=== PATIENT | female | born 1985 ===

== ENCOUNTER 2018-11-09 21:30 | Outpatient (CLI) | payer OTHER ==
[2018-11-09] MEDS ORDERED: LACTATED RINGERS 500 ML IV ONE (21:37)
[2018-11-09 21:52] VITALS: BP 123/76
[2018-11-09 22:40] LABS: Bilirubin,Urine NEG (Negative); Blood,Urine NEG (Negative); Color,Urine Straw (Yellow); Mucus,Urine FEW /HPF; Protein,Urine <15 mg/dL mg/dL (Negative); Urobilinogen,Urine < 2.0 mg/dL (<2.0)
== END 2018-11-09 23:00 | disposition home or self-care (01) ==
LOC: TRG 21:30
PROVIDERS: ATTEND Obstetrics & Gynecology
DX: O42.913 Preterm premature rupture of membranes, unspecified as to length of time between rupture and onset of labor, third trimester (principal); O46.93 Antepartum hemorrhage, unspecified, third trimester; O26.893 Other specified pregnancy related conditions, third trimester; M54.9 Dorsalgia, unspecified; Z3A.36 36 weeks gestation of pregnancy
CPT/HCPCS: 59025; 81001

== ENCOUNTER 2018-11-22 20:17 | Inpatient (IN) | payer OTHER ==
[2018-11-22] MEDS ORDERED: ZOFRAN IV PRN (22:36)
[2018-11-22] MEDS ORDERED: SUBLIMAZE IV PRN (22:36)
[2018-11-22] MEDS ORDERED: XYLOCAINE 2% INFILTRATI ONE ×2 (22:36→22:57)
[2018-11-22] MEDS ORDERED: STADOL IV PRN (22:36)
[2018-11-22] MEDS ORDERED: BRETHINE SUB-Q PRN (22:36)
[2018-11-22] MEDS ORDERED: CERVIDIL VG ONE (22:36)
[2018-11-22] MEDS ORDERED: MINERAL OIL PO PRN (22:36)
[2018-11-22] MEDS ORDERED: BRETHINE IVP PRN (22:57)
[2018-11-22] MEDS ORDERED: PITOCin/NS 20 UNIT/1000ML DRIP 20 UNITS/1,000 ML BAG IV SCH (23:00)
[2018-11-22] MEDS ORDERED: LACTATED RINGERS 1,000 ML IV SCH (23:00)
--- NOTE | 2018-11-22 23:15 | History and Physical Report ---
History of Present Illness Date of examination: 11/22/18 Date of admission: 11/22/18 20:17 Chief complaint: IOL secondary to Pre-Eclampsia History of present illness: 33 yo, at 38.3 wks gestation. She initiated care with [facility] at 10.5 weeks. She presents today for an IOL secondary to Pre- eclampsia. She reports positive FM. Denies VB or LOF. She reports some H/As and visual changes. Labs: O+, antibody negative; PAP normal; VDRL negative; Rubella immune; HBsAg negative; HIV negative; Gc/Chlamydia negative; early 1 hr gtt- 107; 28 wk 1 hr gtt- 116; GBS negative. Past History Past Medical History: no pertinent history Past Surgical History: no surgical history Family/Genetic History: diabetes, hypertension Social history: , lives with family, full code. denies: smoking, alcohol abuse, prescription drug abuse, IV drug use - Obstetrical History Expected Date of Delivery: 12/03/18 Actual Gestation: 38 Week(s) 3 Day(s) : 5 Para: 4 Hx # Term Pregnancies: 4 Number of Pregnancies: 0 Spontaneous Abortions: 0 Induced : 0 Number of Living Children: 4 #1 Gender: Female year: 2,002 Birthweight: 2.722 kg Method of Delivery: Vaginal Complications: none #2 Gender: Male year: 2,[birth year] Birthweight: 3.629 kg Method of Delivery: Vaginal Complications: none #3 Gender: Male year: 2,013 Birthweight: 3.629 kg Method of Delivery: Vaginal Complications: none #4 Infant Gender: Male year: 2,016 Birthweight: 3.629 kg Method of Delivery: Vaginal Complications: none Medications and Allergies Allergies Allergy/AdvReac Type Severity Reaction Status Date / Time No Known Allergies Allergy Verified 11/09/18 21:37 Active Meds: Active Medications Butorphanol Tartrate (Stadol) 2 mg IV Q2H PRN PRN Reason: Pain , Severe (7-10) Ephedrine Sulfate (Ephedrine Sulfate) 10 mg IV Q2M PRN PRN Reason: Hypotension Fentanyl (Sublimaze) 100 mcg IV Q2H PRN PRN Reason: Labor Pain Oxytocin/Sodium Chloride (Pitocin/Ns 20 Unit/1000ml Drip) 20 units in 1,000 mls @ 125 mls/hr IV DIRECT RUBI Lactated Ringer's (Lactated Ringers) 1,000 mls @ 125 mls/hr IV DIRECT RUBI Oxytocin/Sodium Chloride (Pitocin/Ns 30 Unit/500ml) 30 units in 500 mls @ 1 mls/hr IV TITR RUBI; Protocol Lidocaine (Xylocaine 2%) 20 ml INFILTRATI ONCE ONE Stop: 11/22/18 22:58 Mineral Oil (Mineral Oil) 30 ml PO QHS PRN PRN Reason: Constipation Ondansetron HCl (Zofran) 4 mg IV Q8H PRN PRN Reason: Nausea And Vomiting Terbutaline Sulfate (Brethine) 0.25 mg SUB-Q ONCE PRN PRN Reason: Hyperstimulation/Hypertonicity Terbutaline Sulfate (Brethine) 0.25 mg IVP ONCE PRN PRN Reason: Hyperstimulation/Hypertonicity - Vital Signs Vital signs: Vital Signs Pulse BP 66 138/84 11/22/18 20:46 11/22/18 20:46 Temp Pulse Resp BP Pulse Ox 72 147/92 11/22/18 22:47 11/22/18 22:47 Results All other labs normal.
--- NOTE | 2018-11-22 23:36 | History and Physical Report ---
History of Present Illness Date of admission: 11/22/18 20:17 Chief complaint: IOL secondary to Pre-Eclampsia History of present illness: 33 yo, at 38.3 wks gestation. She initiated care with [facility] at 10.5 weeks. She presents today for an IOL secondary to Pre-ecla mpsia. She reports positive FM. Denies VB or LOF. She reports some H/As and visual changes. Labs: O+, antibody negative; PAP normal; VDRL negative; Rubella immune; HBsAg negative; HIV negative; Gc/Chlamydia negative; early 1 hr gtt- 107; 28 wk 1 hr gtt- 116; GBS negative. Past History Past Medical History: no pertinent history Past Surgical History: no surgical history Family/Genetic History: diabetes, hypertension - Obstetrical History : 5 #1 Gender: Female year: 2,[birth year] Birthweight: 2.722 kg Method of Delivery: Vaginal Complications: none #2 Infant Gender: Male year: 2,005 Birthweight: 3.629 kg Method of Delivery: Vaginal Complications: none #3 Gender: Male year: 2,013 Birthweight: 3.629 kg Method of Delivery: Vaginal Complications: none #4 Gender: Male year: 2,016 Birthweight: 3.629 kg Method of Delivery: Vaginal Complications: none Medications and Allergies Allergies Allergy/AdvReac Type Severity Reaction Status Date / Time No Known Allergies Allergy Verified 11/09/18 21:37 Active Meds: Active Medications Butorphanol Tartrate (Stadol) 2 mg IV Q2H PRN PRN Reason: Pain , Severe (7-10) Ephedrine Sulfate (Ephedrine Sulfate) 10 mg IV Q2M PRN PRN Reason: Hypotension Fentanyl (Sublimaze) 100 mcg IV Q2H PRN PRN Reason: Labor Pain Oxytocin/Sodium Chloride (Pitocin/Ns 20 Unit/1000ml Drip) 20 units in 1,000 mls @ 125 mls/hr IV DIRECT RUBI Lactated Ringer's (Lactated Ringers) 1,000 mls @ 125 mls/hr IV DIRECT RUBI Oxytocin/Sodium Chloride (Pitocin/Ns 30 Unit/500ml) 30 units in 500 mls @ 1 mls/hr IV TITR RUBI; Protocol Mineral Oil (Mineral Oil) 30 ml PO QHS PRN PRN Reason: Constipation Ondansetron HCl (Zofran) 4 mg IV Q8H PRN PRN Reason: Nausea And Vomiting Terbutaline Sulfate (Brethine) 0.25 mg SUB-Q ONCE PRN PRN Reason: Hyperstimulation/Hypertonicity Terbutaline Sulfate (Brethine) 0.25 mg IVP ONCE PRN PRN Reason: Hyperstimulation/Hypertonicity Review of Systems All systems: negative - Vital Signs Vital signs: Vital Signs Pulse BP 66 138/84 11/22/18 20:46 11/22/18 20:46 Temp Pulse Resp BP Pulse Ox 72 132/87 11/22/18 23:17 11/22/18 23:17 - Physical Exam Breasts: Positive: deferred Cardiovascular: Regular rate Lungs: Positive: Normal air movement Abdomen: Positive: other (gravid) Genitourinary (Female): Positive: normal external genitalia Vagina: Positive: normal moisture Uterus: Positive: other (S=D) Extremities: Positive: normal Deep Tendon Reflex Grade: Normal +2 - Obstetrical FHR: category 1 Uterine Contraction Monitor Mode: External Cervical Dilatation: 3 Cervical Effacement Percentage: 65 station: -2 Uterine Contraction Pattern: Absent Uterine Tone Measurement Phase: Resting Results All other labs normal. Assessment and Plan - Patient Problems (1) 38 weeks gestation of Current Visit: Yes Status: Acute (2) Encounter for induction of labor Current Visit: Yes Status: Acute Plan to address problem: Admit to L & D Low dose Pitocin overnight as tolerated Pain medications as desired Anticipate (3) Pre-eclampsia affecting , antepartum Current Visit: Yes Status: Acute Plan to address problem: B/P checks q h Notify provider for B/Ps > 160/110
[2018-11-22] MEDS: PITOCin/NS 30 UNIT/500ML 30 UNITS/500 ML BAG IV SCH (23:56)
[2018-11-23 00:49] LABS: Hematocrit 37.6 % (30.3-42.9); Hemoglobin 13.3 gm/dl (10.1-14.3)
[2018-11-23 01:14] LABS: Hematocrit 37.6 % (30.3-42.9); Mean Corpuscular HGB Conc 35 % (30-34); Mean Corpuscular Volume 101 fl (79-97); Red Cell Distribution Width 13.3 % (13.2-15.2)
[2018-11-23 01:28] LABS: Alanine Aminotransferase 11 units/L (7-56)
[2018-11-23 04:00] LABS: Uric Acid 6.4 mg/dL (3.5-7.6)
[2018-11-23 04:44] LABS: Platelet Count 153 K/mm3 (140-440)
--- NOTE | 2018-11-23 10:12 | Progress Note ---
Assessment and Plan A: IUP @ 38 Weeks and Days Preeclampsia Category I Tracing GBS Negative P: Continue Pitocin Induction AROM Prepare for Epidural Anesthesia Subjective - Subjective Date of service: 11/23/18 Patient reports: movement normal, contractions, other (Denies HAs, visual changes, N&V) Objective - Vital Signs Vital Signs: Vital Signs - 12hr 11/22/18 11/22/18 11/22/18 22:17 22:47 23:17 Pulse Rate 68 72 72 Blood Pressure 140/83 147/92 132/87 11/22/18 11/23/18 11/23/18 23:47 00:16 00:45 Pulse Rate 90 71 77 Blood Pressure 146/88 136/87 138/84 11/23/18 11/23/18 11/23/18 00:48 01:16 01:48 Pulse Rate 82 73 68 Blood Pressure 136/79 131/78 129/83 11/23/18 11/23/18 11/23/18 02:17 02:46 03:18 Pulse Rate 68 65 64 Blood Pressure 142/94 137/77 139/76 11/23/18 11/23/18 11/23/18 03:46 04:18 04:48 Pulse Rate 96 H 74 67 Blood Pressure 133/87 135/83 137/85 11/23/18 05:16 Pulse Rate 63 Blood Pressure 141/78 - Exam Breasts: normal Cardiovascular: Regular rate Lungs: Clear to auscultation, Normal air movement Abdomen: Present: normal appearance, soft Uterus: Present: normal, firm, fundal height above umbilicus FHR: category 1 Uterine Contraction Monitor Mode: External Cervical Dilatation: 4 (Small amount of clear fluid upon AROM at 1005) Cervical Effacement Percentage: 60 station: -2 Uterine Contraction Pattern: Irregular Uterine Tone Measurement Phase: Resting Uterine Contraction Intensity: Mild Extremities: normal - Labs Labs: Abnormal Labs 11/22/18 11/22/18 23:36 23:36 MCV 101 H MCH 35 H MCHC 35 H Creatinine 0.6 L Lactate Dehydrogenase 236 H Laboratory Results - last 24 hr 11/22/18 11/22/18 11/22/18 23:36 23:36 23:36 WBC 10.0 RBC 3.70 Hgb 13.0 Hct 37.6 MCV 101 H MCH 35 H MCHC 35 H RDW 13.3 Plt Count 153 Creatinine 0.6 L Estimated GFR > 60 Uric Acid 6.4 AST 20 ALT 11 Lactate Dehydrogenase 236 H Blood Type Antibody Screen 11/22/18 11/23/18 23:45 00:05 WBC RBC Hgb 13.3 Hct 37.6 MCV MCH MCHC RDW Plt Count Creatinine Estimated GFR Uric Acid AST ALT Lactate Dehydrogenase Blood Type O POSITIVE Antibody Screen Negative
[2018-11-23 10:33] LABS: Bilirubin,Urine NEG (Negative); Blood,Urine NEG (Negative); Color,Urine Yellow (Yellow); Mucus,Urine FEW /HPF; Protein,Urine <15 mg/dL mg/dL (Negative); Urobilinogen,Urine < 2.0 mg/dL (<2.0); WBC,Urine < 1.0 /HPF (0.0-6.0)
[2018-11-23] MEDS: PITOCin/NS 30 UNIT/500ML 30 UNITS/500 ML BAG IV SCH (11:19)
[2018-11-23] MEDS ORDERED: XYLOCAINE 2% INFILTRATI ONE (12:28)
[2018-11-23] MEDS ORDERED: BENADRYL PO PRN (12:48)
[2018-11-23] MEDS ORDERED: TUCKS PAD TP PRN (12:48)
[2018-11-23] MEDS ORDERED: SODIUM CHLORIDE FLUSH SYRINGE 10 ML IV NR (13:00)
--- NOTE | 2018-11-23 13:01 | Procedure Note ---
OB Delivery Note - Delivery Date of Delivery: 11/23/18 (1222) Surgeon: MICHELLE DUMONT Estimated blood loss: other (250) - Vaginal Delivery presentation: vertex Delivery position: OA Intrapartum events: none Delivery induction: oxytocin Delivery augmentation: rupture of membranes, pitocin Delivery monitor: external FHT, external uterine Route of delivery: Delivery placenta: spontaneous Delivery cord: 3 umbilical vessels Episiotomy: none Delivery laceration: 1st degree Delivery repair: vicryl Anesthesia: local Delivery comments: of a live 8'12 female over a 1st degree perineal laceration under IV pain control with Apgars of 8 and 9 at 1222 on 11/23/2018. Infant directly to maternal abd/chest, skin to skin contact. Spontaneous delivery of placenta complete and intact with Rosa side presenting at 1227. Fundus is firm and midline located 4 below the U. Lochia is scant. Perineal laceration repaired with 2-[address]-1 under local 2% Lidocaine. Delayed cord clamping and cutting; cord cut by the Father of the Baby. Cord blood collected. Placenta discarded. - A at 1 minute: 8 at 5 minutes: 9 Infant Gender: Female (8'12)
[2018-11-23] MEDS: IBUPROFEN PO SCH ×2 (15:30→19:23)
[2018-11-23] MEDS: NORCO 5/325 PO PRN ×2 (16:06→22:23)
[2018-11-24 01:38] LABS: Hematocrit 31.9 % (30.3-42.9); Hemoglobin 11.1 gm/dl (10.1-14.3)
[2018-11-24] MEDS: NORCO 5/325 PO PRN (05:27)
[2018-11-24] MEDS: IBUPROFEN PO SCH ×2 (05:28→11:13)
[2018-11-24] MEDS ORDERED: BOOSTRIX IM ONE (06:00)
[2018-11-24] MEDS ORDERED: PRENATAL VITAMIN PO SCH (10:00)
--- NOTE | 2018-11-24 12:33 | Progress Note ---
Assessment and Plan A: PPD#1 s/p Preeclampsia (VSS stable) stable P: Routine PP care Discharge home today Subjective - Subjective Date of service: 11/24/18 Principal diagnosis: PPD#1 s/p Patient reports: appetite normal, voiding normally, pain well controlled, flatus, ambulating normally, no bowel movement : doing well, nursing well Objective - Vital Signs Latest vital signs: Vital Signs Temp Pulse Resp BP BP Pulse Ox 11/24/18 07:51 98.4 F 73 16 114/69 94 11/24/18 00:00 98.7 F 77 18 102/76 11/23/18 20:00 98.6 F 77 16 114/76 11/23/18 15:30 97.3 F L 69 18 112/62 97 11/23/18 14:08 71 123/73 11/23/18 13:53 71 105/56 11/23/18 13:38 73 127/72 11/23/18 13:23 79 124/71 11/23/18 12:53 84 126/71 11/23/18 12:35 91 H 135/65 Intake and Output 11/23/18 11/24/18 11/24/18 23:59 07:59 15:59 Intake Total 300 240 Balance 300 240 Intake: Oral 240 Intake, Free Water 300 Other: Total, Intake Amount 240 # Voids Void 1 - Exam Breasts: Present: normal, Cardiovascular: Present: Regular rate, Normal S1, Normal S2, No murmurs Lungs: Present: Clear to auscultation, Normal air movement Abdomen: Present: normal appearance, soft, normal bowel sounds. Absent: distention Vulva: both: laceration/episiotomy (1st, well approximated) Uterus: Present: firm, fundal height below umbilicus (-1) Extremities: Present: normal
--- NOTE | 2018-11-24 12:35 | Discharge Summary ---
Providers - Providers Date of Admission: 11/22/18 20:17 Date of discharge: 11/24/18 Attending physician: MANUELA PABON MD Primary care physician: MANUELA PABON MD Hospitalization Reason for admission: IUP at term Delivery: Procedure details: See H&P and delivery note Episiotomy: none Laceration: 1st degree (well approximated) Other procedures: none Discharge diagnosis: IUP at term delivered [place] baby: female Condition at discharge: Good Disposition: DC-01 TO HOME OR SELFCARE Plan - Provider Discharge Summary Activity: routine, no sex for 6 weeks, no heavy lifting 4 weeks, no strenuous exercise Diet: routine Instructions: routine Additional instructions: [] Smoking cessation referral if applicable(refer to patient education folder for contact #) [] Refer to [facility] Booklet Call your doctor immediately for: * Fever > 100.5 * Heavy vaginal bleeding ( >1 pad per hour) * Severe persistent headache * Shortness of breath * Reddened, hot, painful area to leg or breast * Drainage or odor from incision. * Keep incision clean and dry at all times and follow doctor's instructions regarding bathing/showering - Follow up plan Follow up: MANUELA PABON MD [Primary Care Provider] - 6 Weeks
[2018-11-24 16:52] VITALS: BP 124/70
== END 2018-11-24 16:55 | disposition home or self-care (01) | DRG 807 ==
LOC: APU 20:17 → LD 20:25 → OB 11-23 15:59
PROVIDERS: ADMIT Obstetrics & Gynecology; ATTEND Obstetrics & Gynecology
PROC: 10E0XZZ Delivery of Products of Conception, External Approach (ICD-10-PCS; principal; 2018-11-23)
PROC: 0HQ9XZZ Repair Perineum Skin, External Approach (ICD-10-PCS; 2018-11-23)
PROC: 3E033VJ Introduction of Other Hormone into Peripheral Vein, Percutaneous Approach (ICD-10-PCS; 2018-11-23)
PROC: 3E0234Z Introduction of Serum, Toxoid and Vaccine into Muscle, Percutaneous Approach (ICD-10-PCS; 2018-11-24)
DX: O14.94 Unspecified pre-eclampsia, complicating childbirth (principal); Z37.0 Single live birth; O70.0 First degree perineal laceration during delivery; Z3A.38 38 weeks gestation of pregnancy; Z23 Encounter for immunization
CPT/HCPCS: 36415; 81001; 82565; 83615; 84450; 84460; 84550; 85014; 85018; 85027; 86592; 86850; 86900; 86901; 90715; G0378; J0595; J2590; J3010; J7120